=== PATIENT | male | born 1970 | race Caucasian/White ===

== ENCOUNTER 2016-09-19 18:09 | Emergency (ER) | payer MEDICAID ==
[~2016-09-19] VITALS: Ht 172.7 cm; Wt 79.4 kg
[2016-09-19 18:13] VITALS: BP_SYST 116
--- NOTE | 2016-09-19 18:13 | NUR ---
Patient to ER bed 03 to gown for evaluation. Side rails up.
--- NOTE | 2016-09-19 18:20 | NUR ---
Pt brought by self, accompanied by daughter,ambulatory, pt present to ER with SOB x 4 days, denies history, skin pink and warm, cap refill <3,respirations even and unlabored, afebrile.
--- NOTE | 2016-09-19 18:30 | NUR ---
Dr Ramires at bedside examining patient
--- NOTE | 2016-09-19 18:45 | NUR ---
Pt Vitals WNL, skin pink and warm, denies chest pain or other complains
[2016-09-19 19:06] VITALS: BP_SYST 116
--- NOTE | 2016-09-19 19:06 | NUR ---
Patient given written and verbal discharge instructions and verbalizes understanding. ER MD discussed with patient the results and treatment provided. Patient in stable condition. ID arm band removed. Rx of prednisone given. Patient educated on pain management and to follow up with PMD. Pain Scale 2/10 tolerable for patient. Opportunity for questions provided and answered.
== END 2016-09-19 19:06 | disposition home or self-care (01) ==
LOC: SED 18:09
DX: R06.02 Shortness of breath (principal); R05 Cough; F17.200 Nicotine dependence, unspecified, uncomplicated
CPT/HCPCS: 93005; 99283

== ENCOUNTER 2016-11-08 09:22 | Emergency (ER) | payer MEDICAID ==
[~2016-11-08] VITALS: Ht 170.2 cm; Wt 77.1 kg
[2016-11-08 09:26] VITALS: BP_SYST 118
--- NOTE | 2016-11-08 09:30 | NUR ---
Patient to ER bed 5 to gown for evaluation. Side rails up. Report given to Froylan RODRIGUEZ.
--- NOTE | 2016-11-08 09:32 | NUR ---
ER Dr. Sebastian at bedside examining patient.
--- NOTE | 2016-11-08 09:35 | NUR ---
Pt presents to Ed c/o near syncope x 2 days ago. Pt has no acute distress noted. Pt AAOx4, ambulates w/ steady gait. No neuro-motor deficits noted. Pt requesting evaluation. pt denies significant med hx.
[2016-11-08] MEDS ORDERED: NACL 0.9% 1,000 ML IV ONE (09:45)
--- NOTE | 2016-11-08 09:45 | NUR ---
# 20 gauge angiocath placed to LAC. Use of asceptic technique. Opsite placed over site. Blood return noted. Blood for lab drawn from site. Flushed with 10 cc of normal saline. No evidence of infiltration noted. Patient tolerated well.
[2016-11-08 10:11] LABS: BASOPHILS % (AUTO) 0.7 % (0.0-2.0); EOSINOPHILS # (AUTO) 0.1 K/uL (0.0-0.4); EOSINOPHILS % (AUTO) 2.6 % (0.0-4.0); HEMATOCRIT 45.1 % (36-54); LYMPHOCYTES # (AUTO) 2.1 K/uL (1.0-5.5); LYMPHOCYTES % (AUTO) 38.5 % (20.5-51.5); MEAN CORPUSCULAR HEMOGLOBIN 31 pg (27-31); MEAN CORPUSCULAR HGB CONC 33 % (32-36); MEAN CORPUSCULAR VOLUME 94 fL (79.0-98.0); MONOCYTES # (AUTO) 0.7 K/uL (0.0-1.0); MONOCYTES % (AUTO) 12.2 % (1.7-9.3); NEUTROPHILS # (AUTO) 2.5 K/uL (1.8-7.7); PLATELET COUNT (AUTO) 301 K/uL (130-430); RED BLOOD CELL COUNT(AUTO) 4.83 MIL/uL (4.2-6.2); RED CELL DISTRIBUTION WIDTH 12.4 % (9.0-15.0); WHITE BLOOD COUNT (AUTO) 5.4 K/uL (4.8-10.8)
[2016-11-08 10:14] LABS: CREATININE 0.79 mg/dL (0.55-1.30); POTASSIUM 3.7 mmol/L (3.5-5.1)
--- NOTE | 2016-11-08 10:15 | NUR ---
Pt receiving hydration tolerating well.
[2016-11-08 10:19] LABS: PROTHROMBIN TIME 11.1 SECS (9.5-12.5)
--- NOTE | 2016-11-08 11:00 | NUR ---
Pt sleeping easily arouseable. No complaints at this time.
[2016-11-08 11:58] VITALS: BP_SYST 120
--- NOTE | 2016-11-08 11:58 | NUR ---
Patient given written and verbal discharge instructions and verbalizes understanding. ER MD discussed with patient the results and treatment provided. Patient in stable condition. ID arm band removed. IV catheter removed intact and dressing applied, no active bleeding. Rx of ativan given. Patient educated on pain management and to follow up with PMD. Pain Scale 0. Opportunity for questions provided and answered.
== END 2016-11-08 11:58 | disposition home or self-care (01) ==
LOC: SED 09:22
DX: F41.9 Anxiety disorder, unspecified (principal); R55 Syncope and collapse; F17.200 Nicotine dependence, unspecified, uncomplicated
CPT/HCPCS: 36415; 71010; 80048; 80061; 83880; 84484; 85025; 85610; 85730; 93005; 96360; 99285; J7030